=== PATIENT | male | born 1955 | race Caucasian/White ===

== ENCOUNTER 2019-01-04 12:35 | Emergency (ER) | payer MEDICARE ==
[2019-01-04] MEDS ORDERED: Famotidine 20 MG/2 ML SDV IVPUSH ONE (12:54)
[2019-01-04] MEDS ORDERED: EPINEPHrine 1 MG/ML SDV IM ONE (12:54)
[2019-01-04] MEDS ORDERED: Sodium Chloride 0.9% 10 ML Syringe FLUSH PRN ×2 (12:54)
[2019-01-04] MEDS ORDERED: diphenhydrAMINE 50 MG/ML SDV IVPUSH ONE (12:54)
[2019-01-04] MEDS ORDERED: methylPREDNISolone Sodium Succinate 125 MG/2 ML SDV IV ONE (12:54)
--- NOTE | 2019-01-04 13:03 | EDM.PDOC ---
ED HPI GENERAL MEDICAL PROBLEM - General Chief Complaint: Allergic Reaction Stated Complaint: REACTION TO MEDS Time Seen by Provider: 01/04/19 12:53 Source of Information: Reports: Patient, Family, RN Notes Reviewed History Limitations: Reports: No Limitations - History of Present Illness INITIAL COMMENTS - FREE TEXT/NARRATIVE: 63-year-old gentleman presents to emergency department today complaint of tongue swelling, he did start a new medicine of indomethacin he has used this in the past however recently diagnosed with gout he did take 3 doses yesterday and 1 dose today noticed his tongue started swelling only in the right half about 9:00 this morning he denies any difficulty breathing denies any difficulty swallowing was able to eat breakfast without difficulty - Related Data Allergies Allergy/AdvReac Type Severity Reaction Status Date / Time indomethacin Allergy Swollen Verified 01/04/19 12:58 Tongue Home Meds: Home Meds Colchicine 0.6 mg PO DAILY #3 capsule 01/04/19 [Rx] EPINEPHrine [Epinephrine] 0.3 mg IJ ASDIRECTED PRN #2 auto.injct 01/04/19 [Rx] Past Medical History Cardiovascular History: Reports: Hypertension Social & Family History - Tobacco Use Smoking Status *Q: Former Smoker ED ROS ALLERGIC REACTION - Review of Systems Review Of Systems: See Below Constitutional: Reports: No Symptoms HEENT: Reports: Other (Tongue swelling). Denies: Throat Pain, Throat Swelling Respiratory: Reports: No Symptoms Cardiovascular: Reports: No Symptoms GI/Abdominal: Reports: No Symptoms : Reports: No Symptoms ED EXAM GENERAL NO PERIP PULSE - Physical Exam Exam: See Below Exam Limited By: No Limitations General Appearance: Alert, No Apparent Distress Ears: Normal External Exam, Normal Canal, Hearing Grossly Normal, Normal TMs Nose: Normal Inspection, Normal Mucosa, No Blood Throat/Mouth: Normal Inspection, Normal Lips, Normal Teeth, Normal Gums, Inflammation (right toung) Head: Atraumatic, Normocephalic Neck: Normal Inspection, Supple, Non-Tender, Full Range of Motion Respiratory/Chest: No Respiratory Distress, No Accessory Muscle Use, Crackles Cardiovascular: Regular Rate, Rhythm, No Murmur Course - Vital Signs Last Recorded V/S: Last Vital Signs Temp 94.1 F L 01/04/19 12:53 Pulse 96 01/04/19 13:37 Resp 18 01/04/19 13:37 BP 158/86 H 01/04/19 13:37 Pulse Ox 96 01/04/19 13:37 - Orders/Labs/Meds Orders: Active Orders 24 hr Category Date Time Status Peripheral IV Care [RC] . DIRECTED Care 01/04/19 12:55 Active Sodium Chloride 0.9% [Saline Flush] Med 01/04/19 12:54 Active 10 ml FLUSH ASDIRECTED PRN Sodium Chloride 0.9% [Saline Flush] Med 01/04/19 12:54 Active 10 ml FLUSH ASDIRECTED PRN Peripheral IV Insertion Adult [OM.PC] Urgent Oth 01/04/19 12:54 Ordered Medication Orders Sodium Chloride (Saline Flush) 10 ml FLUSH ASDIRECTED PRN PRN Reason: Keep Vein Open Last Admin: 01/04/19 13:36 Dose: 10 ml Sodium Chloride (Saline Flush) 10 ml FLUSH ASDIRECTED PRN PRN Reason: Keep Vein Open Last Admin: 01/04/19 13:36 Dose: 10 ml Meds: Medications Generic Name Dose Route Start Last Admin Trade Name Freq PRN Reason Stop Dose Admin Sodium Chloride 10 ml 01/04/19 12:54 01/04/19 13:36 Saline Flush FLUSH 10 ml ASDIRECTED PRN Administration Keep Vein Open Sodium Chloride 10 ml 01/04/19 12:54 01/04/19 13:36 Saline Flush FLUSH 10 ml ASDIRECTED PRN Administration Keep Vein Open Discontinued Medications Generic Name Dose Route Start Last Admin Trade Name Freq PRN Reason Stop Dose Admin Diphenhydramine HCl 50 mg 01/04/19 12:54 01/04/19 13:09 Benadryl IVPUSH 01/04/19 12:55 50 mg ONETIME ONE Administration Epinephrine HCl 0.3 mg 01/04/19 12:54 01/04/19 13:19 Adrenalin IM 01/04/19 12:55 0.3 mg ONETIME ONE Administration Famotidine 20 mg 01/04/19 12:54 01/04/19 13:35 Pepcid IVPUSH 01/04/19 12:55 20 mg ONETIME ONE Administration Methylprednisolone Sodium Succinate 125 mg 01/04/19 12:54 01/04/19 13:04 Solu-Medrol IV 01/04/19 12:55 125 mg ONETIME ONE Administration Departure - Departure Time of Disposition: 14:14 Disposition: Home, Self-Care 01 Condition: Fair Clinical Impression: Anaphylactic reaction Qualifiers: Encounter type: initial encounter Qualified Code(s): T78.2XXA - Anaphylactic shock, unspecified, initial encounter - Discharge Information Prescriptions: Colchicine 0.6 mg PO DAILY #3 capsule EPINEPHrine [Epinephrine] 0.3 mg IJ ASDIRECTED PRN #2 auto.injct PRN Reason: Allergies Referrals: Antony Huerta MD [Primary Care Provider] - Forms: ED Department Discharge Additional Instructions: Here medications have been faxed to your pharmacy, please return to the emergency department with worsening of symptoms - My Orders Last 24 Hours: My Active Orders 01/04/19 12:54 Sodium Chloride 0.9% [Saline Flush] 10 ml FLUSH ASDIRECTED PRN Sodium Chloride 0.9% [Saline Flush] 10 ml FLUSH ASDIRECTED PRN Peripheral IV Insertion Adult [OM.PC] Urgent 01/04/19 12:55 Peripheral IV Care [RC] . DIRECTED - Assessment/Plan Last 24 Hours: My Active Orders 01/04/19 12:54 Sodium Chloride 0.9% [Saline Flush] 10 ml FLUSH ASDIRECTED PRN Sodium Chloride 0.9% [Saline Flush] 10 ml FLUSH ASDIRECTED PRN Peripheral IV Insertion Adult [OM.PC] Urgent 01/04/19 12:55 Peripheral IV Care [RC] . DIRECTED Plan: Assessment Acuity = acute Site and laterality = anaphylactic reaction Etiology = possibly to indomethacin Manifestations = tongue swelling now resolved Location of injury = Home Lab values = none Plan Good improvement with 0.3 mg epinephrine, 125 mg Solu-Medrol and 50 mg Benadryl 20 mg Pepcid prescription written for injectable epinephrine 2 units faxed to pharmacy. I asked him to stay for longer observation time but he declined This note was dictated using [employer] voice recognition software please call with any questions on syntax or grammar.
== END 2019-01-04 14:41 | disposition home or self-care (01) ==
LOC: JP.ED 12:35
DX: T88.6XXA Anaphylactic reaction due to adverse effect of correct drug or medicament properly administered, initial encounter (principal); R22.0 Localized swelling, mass and lump, head; T39.395A Adverse effect of other nonsteroidal anti-inflammatory drugs [NSAID], initial encounter; I10 Essential (primary) hypertension; Z88.8 Allergy status to other drugs, medicaments and biological substances; Z79.899 Other long term (current) drug therapy; Z87.891 Personal history of nicotine dependence
CPT/HCPCS: 96372; 96374; 96375; 99282; J0171; J1200; J2930; J3490

== ENCOUNTER 2025-02-20 10:00 | Emergency (ER) | payer MEDICARE ==
[2025-02-20 10:10] LABS: BASOPHILS PERCENT AUTO 0.5 % (0.1-1.3); HEMATOCRIT 53.6 % (38.4-49.7); HEMOGLOBIN 17.1 g/dL (12.9-16.9); IMMATURE GRAN ABSOLUTE AUTO 0.13 K/uL (0.00-0.23); IMMATURE GRAN PERCENT AUTO 0.7 % (0.0-0.7); LYMPHOCYTES ABSOLUTE AUTO 1.35 K/uL (0.8-3.3); LYMPHOCYTES PERCENT AUTO 6.9 % (11.4-47.7); MEAN CORPUSCULAR HEMOGLOBIN 31.8 pg (31.6-35.5); MEAN CORPUSCULAR HGB CONC 31.9 g/dL (31.6-35.5); MEAN CORPUSCULAR VOLUME 99.8 fL (81.4-99.0); MONOCYTES ABSOLUTE AUTO 1.02 K/uL (0.20-0.90); MONOCYTES PERCENT AUTO 5.2 % (3.3-12.6); NEUTROPHILS ABSOLUTE AUTO 16.77 K/uL (1.0-7.6); NEUTROPHILS PERCENT AUTO 85.7 % (40.0-78.1); PLATELET COUNT,PLT 172 K/uL (130-375); RED BLOOD CELL COUNT 5.37 M/uL (4.14-5.76); WHITE BLOOD CELL COUNT,WBC 19.6 K/uL (3.2-11.0)
[2025-02-20 10:26] LABS: PROTHROMBIN TIME 10.6 sec (9.2-10.6); PTT,PARTIAL THROMBOPLSTIN TIME 28.1 sec (21.8-27.3)
[2025-02-20 10:30] LABS: ALANINE AMINOTRANSFERASE,ALT 18 U/L (12-78); ALBUMIN 3.6 g/dL (3.4-5.0); ALKALINE PHOSPHATASE 128 U/L (46-116); ANION GAP 9.2 mmol/L (5.0-14.0); ASPARTATE AMNIOTRANSFERASE,AST 12 U/L (15-37); BLOOD UREA NITROGEN,BUN 22 mg/dL (7-18); CALCIUM 9.3 mg/dL (8.5-10.1); CARBON DIOXIDE,CO2 28 mmol/L (21-32); CHLORIDE,CL 104 mmol/L (100-108); CREATININE 2.1 mg/dL (0.8-1.3); ESTIMATED GFR 33 mL/min (>60); GLUCOSE RANDOM 124 mg/dL (74-106); PROTEIN TOTAL,TP 7.4 g/dL (6.4-8.2); SODIUM,NA 141 mmol/L (140-148); TROPONIN I HIGH SENSITIVITY 8.2 pg/mL (<=60.3)
[2025-02-20] MEDS: Aspirin 81 MG Tab.Chew PO ONE (11:12)
[2025-02-20] MEDS: Sodium Chloride 0.9% 10 ML Syringe FLUSH PRN (11:13)
[2025-02-20] MEDS: Clopidogrel 75 MG Tab PO ONE (11:13)
[2025-02-20] MEDS: Sodium Chloride 0.9% 10 ML Syringe FLUSH ONE (11:58)
[2025-02-20] MEDS: Sodium Chloride 0.9% 100 ML IV ONE (11:58)
[2025-02-20] MEDS: Iopamidol 755 Mg/ML 100 ML Bottle IV ONE (11:58)
== END 2025-02-20 14:57 | disposition home or self-care (01) ==
LOC: JP.ED 10:00
DX: I63.511 Cerebral infarction due to unspecified occlusion or stenosis of right middle cerebral artery (principal); I63.231 Cerebral infarction due to unspecified occlusion or stenosis of right carotid arteries; I10 Essential (primary) hypertension; Z88.8 Allergy status to other drugs, medicaments and biological substances; Z79.899 Other long term (current) drug therapy
CPT/HCPCS: 36415; 70450; 70496; 70498; 80053; 82947; 84484; 85025; 85610; 85730; 93005; 99285; A9270; Q9967